=== PATIENT | male | born 1955 | race Caucasian/White ===

== ENCOUNTER → 2017-04-02 | Day surgery (SDC) | payer OTHER ==
[~2017-04-02] VITALS: Ht 180.3 cm; Wt 71.7 kg
[~2017-04-02] MED LIST: FLOMAX0.4 M1 PO
--- NOTE | 2017-04-02 08:31 | Operative Report ---
Operative/Inv Procedure Report Surgery Date: 04/02/17 Name of Procedure: left ESWL Pre-Operative Diagnosis: left kidney stone Post-Operative Diagnosis: same Estimated Blood Loss: scant Surgeon/Shuttler: Meri Melendez MD Anesthesia: local monitored anesthesi Complications: none Condition: stable Operative Indication: left renal stone Operative/Procedure Note Note: 61yo male with a hx of left renal stone that was recently discovered. Given the size of the stone on the left side, he opted to have them treated with ESWL. Discussed the risks, benefits and alternatives of the procedure. Answered all questions. Patient was taken to the opertaing room and placed in the supine position to optimally treat the right side. Time out was performed. IV kefzol was infused. The ESWL treatment was started once the stone was easily identified on the leftt side lower pole. A total of 2500 shocks to the right 5-6 mm stone in the LP with US guidance. At a power of 1-11 for 250 shocks, 12-16 for 250, 17 for 2000 shocks. Patient tolerated the procedure well. The stone was visibly changed at the end of the 2500 shocks. He was transferred to same day surgery. Findings: left renal stone visibly changed after the ESWL treatment Discharge Disposition: Same Day Admissions
== END ==
LOC: STS 03:30
DX: N20.0 Calculus of kidney (principal); R35.0 Frequency of micturition; Z87.442 Personal history of urinary calculi; N40.1 Benign prostatic hyperplasia with lower urinary tract symptoms
CPT/HCPCS: J0690; J2250